=== PATIENT | female | born 1945 | race Caucasian/White ===

== ENCOUNTER → 2017-06-28 | Outpatient (CLI) | payer OTHER ==
[~2017-06-28] MED LIST: VALIUM5 MG PO; [UNRECOGNIZED DRUG - OTHER] PO
== END ==
LOC: ULTRA 15:14
DX: R10.9 Unspecified abdominal pain (principal); M54.9 Dorsalgia, unspecified

== ENCOUNTER 2017-08-03 05:32 | Day surgery (SDC) | payer OTHER ==
[~2017-08-03] VITALS: Ht 149.9 cm; Wt 43.1 kg
--- NOTE | ~2017-08-03 | O ---
[facility] [place] [address] OPERATIVE REPORT Name: DINA YUSUF Room #: DEP [facility].#: [id number] Admission: 08/03/17 Attend Phys: Ilya Piña MD Discharge: 08/04/17 Date of : 47 Report #: [id number] THIS REPORT FOR: //name// CC: Ilya Garcia MD PREOPERATIVE DIAGNOSIS: Cholecystitis, acalculous/biliary dyskinesia. POSTOPERATIVE DIAGNOSIS: Cholecystitis, acalculous/biliary dyskinesia plus cholesterolosis. PROCEDURES PERFORMED: Laparoscopic cholecystectomy with cholangiogram. SURGEON: Ilya Piña MD ANESTHESIA: General anesthesia. COMPLICATIONS: None. ESTIMATED BLOOD LOSS: 5 mL. FINDINGS: The cystic duct is tortuous. The gallbladder wall does contain cholesterol deposit. Common bile duct is normal on operative cholangiogram. DESCRIPTION OF PROCEDURE: With the patient under general anesthesia, the abdomen was prepped and draped in sterile fashion. IV antibiotic was administered. A 0.25% Marcaine was used to anesthetize the skin at the trocar site. Timeout was performed. A 2 cm incision was made infraumbilically. The fascia was identified. The fascia was grasped with hemostat and opened under visualization; 0 Vicryl stay sutures were placed on the fascial edges. With the wall lifted anteriorly, Veress needle was then placed through the posterior sheath and peritoneum. The abdominal cavity was insufflated with CO2 without difficulty. After creating pneumoperitoneum, 11 mm trocar was placed through the posterior fascia peritoneum into the pneumoperitoneum without harm to underlying tissue. Two 5 mm trocar sites were placed in the right upper quadrant under visualization. Another 5 mm trocar was placed in the right epigastrium. The gallbladder was lifted over the liver. There was some adhesion to the gallbladder consistent with chronic inflammation. Adhesions were taken down. The cystic duct was then dissected free. There was moderate fibrosis surrounding the cystic duct. The cystic duct was also torturous and folded on itself. This is due to scar tissue. These bands were freed. The cystic duct was then straightened out. The cystic artery was also isolated. A clip was placed in the junction of cystic duct to the gallbladder. Opening was made in the cystic duct. Cholangiogram catheter was inserted. There was no stone in the cystic duct. Fluoroscopic cholangiogram was obtained. The common bile duct filled out well. No filling defect. The pancreatic part, a [address] [address] OPERATIVE REPORT Name: PARAMJITDINA LEE Room #: DEP [facility]..#: [id number] Admission: 08/03/17 Attend Phys: Ilya Piña MD Discharge: 08/04/17 Date of : 47 Report #: [id number] portion of the pancreatic duct was also seen. The cholangiogram catheter was identified in the cystic duct. No harm to the common duct. The cholangiogram catheter was then removed. The proximal cystic duct was then clipped x 2 proximally and then divided. The cystic artery was also found. This was isolated, clipped x 2 proximally and 1 distally and then divided. Note the right hepatic artery was pretty close to the gallbladder bed. The right hepatic artery was preserved from harm. The gallbladder was then freed from the liver bed. Hemostasis was obtained. The gallbladder was then retrieved through the infraumbilical port. The liver bed was checked and hemostasis was excellent. Irrigation was performed. Irrigation was suctioned out. CO2 was evacuated. Trocars were removed. The gallbladder was opened off the field. There is sludge in the gallbladder wall and cholesterol buildup along the lining. The patient tolerated the procedure well, awakened and taken to the recovery room. The fascia defect was closed with [id number] 0 Vicryl x 2. Skin was closed with 5-0 PDS. Steri-Strip and Band-Aids applied. <ELECTRONICALLY SIGNED> By: Ilya Piña MD 08/08/17 1105 10 30 Ilya Piña MD /nt
--- NOTE | ~2017-08-03 | PATH ---
[facility] [place] [address] [place] [address] PATHOLOGY RPT PROCEDURE Name: DINA YUSUF Room #: DEP [facility] M.R.#: [id number] Admission: 08/03/17 Date of : 47 Discharge: 08/04/17 Report #: [id number] Path Case #: [id number] [facility] Accession Number: [id number] . 01 Material submitted: . GALLBLADDER . 02 Diagnosis: Gallbladder, cholecystectomy: - Mild chronic cholecystitis. - One minute incidental reactive lymph node. (IUV:meliza; 08/04/2017) QMS/08/04/2017 . 02 Electronically signed: . Brinda Post MD, Pathologist NPI- [id number] . 01 Gross description: . Received in formalin labeled "Dina Yusuf, gallbladder" and consists of a previously opened glistening green gallbladder measuring 7.0 cm in length by 4.2 cm in circumference. The wall averages 0.3 cm thick. The mucosa is slightly velvety and brown. There are no calculi or mucosal polyps present. Parts Technician sections are submitted as A1. (MICHELLE; 08/03/2017) JBR/JBR . 02 Pathologist provided ICD-10: K81.1 . 02 CPT . 491498 Performed at: [address], [place] [id number] MD Obey Hylton MD Phone: [phone] Performed at: [address] [id number] MD Brinda Post MD Phone: [phone]
[~2017-08-03 05:32] MED LIST changes: +FLEXERIL PO; +IBUPROFEN 200200 M1 PO; +LEXAPRO 10 MG T10 M1 PO; +PRILOSEC OTC20 MG PO; +UROMAG84.5 MG PO; +VALIUM10 MG PO; +VITAMIN D31000 UNI2 PO
[2017-08-03 09:41] VITALS: BP 134/76
[2017-08-03 21:00] VITALS: BP 81/39
[2017-08-04 04:30] VITALS: BP 94/54
[2017-08-04 07:50] VITALS: BP 100/52
[2017-08-04] MEDS ORDERED: NORCO 5-325 TA1 EACH PO (12:24)
[2017-08-04 14:06] VITALS: BP 100/52
[2017-08-04 16:48] VITALS: BP 125/53
[2017-08-04 16:57] VITALS: BP 100/52
== END 2017-08-04 16:59 | disposition home or self-care (01) ==
LOC: OR 05:32 → TBA 05:32 → OR 08:30 → 4E 17:03 → OR 08-04 16:59
DX: K81.1 Chronic cholecystitis (principal); K82.8 Other specified diseases of gallbladder; E78.5 Hyperlipidemia, unspecified; K21.9 Gastro-esophageal reflux disease without esophagitis; F41.9 Anxiety disorder, unspecified; Z98.890 Other specified postprocedural states; Z79.899 Other long term (current) drug therapy; Z88.0 Allergy status to penicillin; Z88.2 Allergy status to sulfonamides; Z88.8 Allergy status to other drugs, medicaments and biological substances
CPT/HCPCS: 10783; 50010; 50101; 50411; 50555; 50558; 51489; 53307; 53310; 55245; 55317; 56462; 56525; 56526; 62110; 62900; 70005

== ENCOUNTER → 2018-11-17 | Outpatient (CLI) | payer OTHER ==
[~2018-11-17] VITALS: Ht 149.9 cm; Wt 40.8 kg
[~2018-11-17] MED LIST changes: +NORCO 5-325 TA1 EACH PO; +TYLENOL EXTRA500 MG PO
--- NOTE | 2018-11-18 10:55 | P ---
[facility] [place] [address] PROCEDURE REPORT Name: DINA YUSUF Room #: REG [facility]#: [id number] Admission: 11/17/18 Attend Phys: Barney De Los Santos MD Discharge: Date of : 47 Report #: [id number] THIS REPORT FOR: //name// CC: Moise Garcia UPPER ENDOSCOPY REPORT BRIEF HISTORY: The patient is a 73-year-old woman with complaints of upper abdominal, chest pressure as well as epigastric pressure pain. She is on omeprazole 20 mg daily. PREOPERATIVE DIAGNOSIS: Chest pain. POSTOPERATIVE DIAGNOSES: 1. Grade A esophagitis. 2. Small hiatus hernia. 3. Moderately severe diffuse gastritis. MEDICATIONS: Deep sedation with propofol per anesthesia. SPECIMENS: 1. Small bowel biopsies to rule out celiac disease. 2. Biopsies of gastritis. ESTIMATED BLOOD LOSS: 3 mL. PROCEDURE: EGD with biopsy. FINDINGS: Prior to propofol sedation, procedure of upper endoscopy discussed with the patient as well as potential risks and its complications. She indicates she understands and desires to proceed. DESCRIPTION OF PROCEDURE: With the patient in left lateral decubitus position, the Olympus video endoscope was inserted in the cervical esophagus under direct vision without difficulty. Examination of this organ through its entire length revealed normal esophageal mucosa down the squamocolumnar junction. At the squamocolumnar junction, there was a single erosive column consistent with grade A esophagitis. Intermittently, a small hiatus hernia was seen. Mucosa hernia was unremarkable. A definite stricturing was not seen. No mass lesions were seen. There was no evidence of Blake mucosa. The hernia was no more than about 2 cm. The scope was advanced fully into the stomach, which was examined on end view as well as retroflexed views. There was moderately severe erythema throughout the antrum suggestive of gastritis. There were no ulcers, erosions or bleeding lesions. Upon retroflexion, no mass lesions were seen. Biopsies [address] [address] PROCEDURE REPORT Name: PARAMJITDINAALISON SÁNCHEZ Room #: REG [facility]#: [id number] Admission: 11/17/18 Attend Phys: Barney De Los Santos MD Discharge: Date of : 47 Report #: [id number] obtained of the gastritis. The pylorus, duodenal bulb, and postbulbar duodenal sweep were inspected and noted to be unremarkable. The patient has complaints of severe abdominal bloating. Small bowel biopsies were obtained to evaluate for celiac disease. At that point, the scope was slowly withdrawn and careful circumferential views confirmed the above findings. The patient tolerated the procedure well. CONDITION OF THE PATIENT UPON DISCHARGE: Following procedure, the patient drowsy. She was then prepared for colonoscopy. INSTRUCTIONS TO THE PATIENT AND FAMILY AT THE TIME OF DISCHARGE: She clearly has esophagitis. We will have her increase her omeprazole from 20 mg daily to 40 mg twice daily for at least 6-8 weeks. She may reduce thereafter as tolerated. If she continues to have symptoms, she should return to the office for followup. Follow up on biopsies regarding possible celiac disease. Proceed with colonoscopy at this time. <ELECTRONICALLY SIGNED> By: Barney De Los Santos MD 11/18/18 1055 0808 2133 Barney De Los Santos MD /nt
--- NOTE | 2018-11-18 10:55 | P ---
[facility] [place] [address] PROCEDURE REPORT Name: DINA YUSUF Room #: REG [facility]#: [id number] Admission: 11/17/18 Attend Phys: Barney De Los Santos MD Discharge: Date of : 47 Report #: [id number] THIS REPORT FOR: //name// CC: Barney Garcia DATE OF SERVICE: 11/17/2018 BRIEF HISTORY: The patient is a 73-year-old woman with a history of colon polyps. She also has been having problems recently with change in bowel habits, abdominal bloating and abdominal pain. PREOPERATIVE DIAGNOSIS: High risk screening colonoscopy. POSTOPERATIVE DIAGNOSES: 1. A 5 mm sessile polyp, 25 cm. 2. Few sigmoid diverticula. 3. Small internal hemorrhoids. MEDICATIONS: Deep sedation with propofol per anesthesia. SPECIMEN: Polyp from 25 cm. ESTIMATED BLOOD LOSS: 3 mL. PROCEDURE: Colonoscopy to cecum and terminal ileum with snare polypectomy. FINDINGS: Prior to propofol sedation, procedure of colonoscopy discussed with the patient as well as potential risks and its complications. She indicates she understands and desires to proceed. DESCRIPTION OF PROCEDURE: With the patient in left lateral decubitus position, digital examination was completed, which revealed no abnormalities. Subsequently, the Olympus video colonoscope was introduced in the rectum, advanced under direct vision to the cecum. Done with minimal difficulty. The cecum was identified by the ileocecal valve and the appendiceal orifice. I was able to visualize the distal segment of terminal ileum, which was inspected and noted to be unremarkable. At that point, the scope was slowly withdrawn and careful circumferential views were obtained. Upon slow withdrawal of the scope, the prep was for the most part good. There were a couple areas including the cecum, there was some residual seed like conventional material. We irrigated and cleaned up as well as possible. Reasonably good looks were obtained of almost all the mucosa but some areas they were somewhat limited. A small lesion could have been overlooked. However, there were only a few of these areas. As we withdrew the scope, the mucosa was within normal limits, normal vascular [facility] [address] [place] [address] PROCEDURE REPORT Name: DINA YUSUF Room #: REG [facility]#: [id number] Admission: 11/17/18 Attend Phys: Barney De Los Santos MD Discharge: Date of : 47 Report #: [id number] pattern, normal light reflex. No abnormalities were noted until the sigmoid colon was reached and a few scattered diverticula were seen without endoscopic evidence of diverticulitis. In addition, at 25 cm., a sessile 5 mm polyp was seen and removed by cold snare polypectomy. Scope was further withdrawn and no additional abnormalities were seen. Scope was withdrawn in the rectum, which was unremarkable. However, upon retroflexion, small hemorrhoids were seen. Scope was withdrawn. The patient tolerated the procedure well. CONDITION OF THE PATIENT UPON DISCHARGE: Following procedure, the patient drowsy, aroused, conversant and will be discharged home when fully ambulatory. INSTRUCTIONS TO THE PATIENT AND FAMILY AT THE TIME OF DISCHARGE: The patient has a history of colon polyps. A polyp was identified and removed as noted. We will follow up on the pathology. However, at this point, I suggest followup colon exam in 5 years. As for her other symptoms are particularly bloating and constipation issues, I do not see any obstructing lesions. She does have a somewhat dilated colon consistent with chronic constipation. We will have her start MiraLax on a daily basis. If she continues to have difficulty, she will return to see me in followup in the office. If constipation continues to be a problem, she may benefit from a drug such Movantik which has impacted on motility. Last colonoscopy was more than 4 years ago. Withdrawal time from the cecum was 9 minutes 56 seconds. <ELECTRONICALLY SIGNED> By: Barney De Los Santos MD 11/18/18 1055 0836 2230 Barney De Los Santos MD /nt
--- NOTE | 2018-11-21 13:46 | PATH ---
[facility] [place] [address] PATHOLOGY RPT PROCEDURE Name: DINA YUSUF GONZALO Room #: REG [facility] Jessica.#: [id number] Admission: 11/17/18 Date of : 47 Discharge: Report #: [id number] Path Case #: [id number] [facility] Accession Number: [id number] . 01 Material submitted: . PART A: small bowel - BX SMALL BOWEL PART B: stomach - BX GASTRITIS PART C: colon - POLYP AT 25CM . 01 Clinical history: . Pre-OP DX: Abdominal pain, bloating, Hx colon polyps Post-OP DX: Gastritis, esophagitis, colon polyp . 02 Diagnosis: A. "BX small bowel R/O celiac disease", biopsy: - Small bowel/duodenal mucosa with minimal histologic alterations; no evidence of celiac sprue. . B. "BX gastritis R/O H. pylori", biopsy: - Gastric mucosa with reactive and regenerative changes and mild acute and chronic inflammation. - Negative H. pylori immunohistochemical stain (block B1); control reacted appropriately. . C. "Polyp at 25 cm", biopsy: - Tubular adenoma; no high-grade dysplasia. . (CLW:gissell; 11/18/2018) QTP 11/18/2018 1001 Local . 02 Electronically signed: . Roseline May MD, Pathologist NPI- [id number] . 01 Gross description: . A. Received in formalin labeled "Dina Yusuf, BX small bowel, rule out celiac," are 6 segments of huffman soft tissue measuring 1.5 x 0.8 x 0.4 cm in aggregate dimensions and ranging from 0.2 to 0.6 cm in maximum dimension. The specimen is submitted entirely in cassette A1. . B. Received in formalin labeled "Dina Yusuf, BX gastritis, rule out H. pylori," are 7 segments of huffman soft tissue measuring 1.5 x 0.9 x 0.2 cm in aggregate dimensions and ranging from 0.2 to 0.5 cm in maximum dimension. The specimen is submitted entirely in cassette B1. . C. Received in formalin labeled "Dina Yusuf, polyp at 25 cm," are 2 segments of huffman soft tissue measuring 1.1 x 0.4 x 0.3 cm in aggregate [address] [address] PATHOLOGY RPT PROCEDURE Name: DINA YUSUF BURBANK Room #: REG [facility] Jessica.#: [id number] Admission: 11/17/18 Date of : 47 Discharge: Report #: [id number] Path Case #: [id number] dimensions and ranging from 0.5 to 0.6 cm in maximum dimension. The specimen is submitted entirely in cassette C1. (TSD; 11/17/2018) TOB/TOB 11/17/2018 1740 Local . 02 Pathologist provided ICD-10: K29.00, K29.50, D12.6 . 02 CPT . 281407, 085015, 611613, E48630 Specimen Comment: A courtesy copy of this report has been sent to Specimen Comment: [phone], . Specimen Comment: Report sent to / DR HIGGINS Performed at: [address], [place] [id number] MD Obey Hylton MD Phone: [phone] Performed at: [address] [id number] MD Brinda Post MD Phone: [phone]
== END | disposition home or self-care (01) ==
LOC: GI 06:36
DX: D12.5 Benign neoplasm of sigmoid colon (principal); K57.30 Diverticulosis of large intestine without perforation or abscess without bleeding; K64.8 Other hemorrhoids; K29.50 Unspecified chronic gastritis without bleeding; K29.00 Acute gastritis without bleeding; K21.0 Gastro-esophageal reflux disease with esophagitis; K44.9 Diaphragmatic hernia without obstruction or gangrene; Z86.010 Personal history of colon polyps; E78.5 Hyperlipidemia, unspecified; F41.9 Anxiety disorder, unspecified; Z90.49 Acquired absence of other specified parts of digestive tract; Z98.890 Other specified postprocedural states; Z79.899 Other long term (current) drug therapy; Z88.0 Allergy status to penicillin; Z88.2 Allergy status to sulfonamides; Z88.8 Allergy status to other drugs, medicaments and biological substances
CPT/HCPCS: 62110; 62900